=== PATIENT | male | born 1965 | race Hispanic/Latino ===

== ENCOUNTER 2017-07-17 11:10 | Observation (INO) | payer OTHER ==
[~2017-07-17] VITALS: Ht 177.8 cm; Wt 97.7 kg
[2017-07-17 11:42] LABS: CREATININE 1.6 mg/dL (0.5-1.5); POTASSIUM 4.8 mmol/L (3.5-5.1)
[2017-07-17 11:43] LABS: BASOPHILS % (AUTO) 1.5 % (0.0-5.0); EOSINOPHILS % (AUTO) 3.2 % (0.0-8.0); LYMPHOCYTES % (AUTO) 20.5 % (21.0-51.0); MEAN CORPUSCULAR HEMOGLOBIN 30.5 pg (27.0-33.0); MEAN CORPUSCULAR HGB CONC 34.8 g/dL (32.0-36.0); MEAN CORPUSCULAR VOLUME 87.5 fL (79-99); MONOCYTES % (AUTO) 9.5 % (3.0-13.0); NEUTROPHILS % (AUTO) 65.3 % (40.0-77.0); PLATELET COUNT (AUTO) 221 K/uL (130-400); RED BLOOD CELL COUNT(AUTO) 4.23 MIL/uL (4.50-6.20); RED CELL DISTRIBUTION WIDTH 14.7 % (11.0-15.5); WHITE BLOOD COUNT (AUTO) 9.6 K/uL (4.8-10.8)
[2017-07-17 11:47] LABS: INR 0.96 (0.85-1.15); PARTIAL THROMBOPLASTIN TIME 25.9 SEC (26.3-35.5); PROTHROMBIN TIME 10.1 SEC (9.6-11.6)
[2017-07-17 11:56] LABS: ALBUMIN 3.7 g/dL (3.5-5.0); BILIRUBIN,TOTAL 0.9 mg/dL (0.2-1.0); CREATINE KINASE MB 1.2 ng/mL (0.5-3.6)
[2017-07-17] MEDS ORDERED: ASPIRIN 81MG TAB.CHEW ONE (15:33)
[2017-07-17] MEDS ORDERED: ENOXAPARIN SODIUM 100 MG/1 ML SQ ONE (17:01)
[2017-07-17] MEDS ORDERED: CLOPIDOGREL BISULFATE 75 MG TAB ONE (17:02)
[2017-07-17 19:59] LABS: CREATINE KINASE MB 0.9 ng/mL (0.5-3.6)
[2017-07-17 21:35] VITALS: BP 145/88
[2017-07-17 23:57] VITALS: BP 130/83
[2017-07-18] MEDS ORDERED: ESCI10TA54 PO (00:17)
[2017-07-18] MEDS ORDERED: AMLO5TAB2 PO (00:17)
[2017-07-18] MEDS ORDERED: NIAC250T9 PO (00:17)
[2017-07-18] MEDS ORDERED: METF10004 PO (00:17)
[2017-07-18] MEDS ORDERED: METO100T14 PO (00:17)
[2017-07-18] MEDS ORDERED: NITR0.4T SL (00:17)
[2017-07-18] MEDS ORDERED: LISI-613 PO (00:17)
[2017-07-18] MEDS ORDERED: NITROGLYCERIN 0.4 MG SL TAB SL PRN (00:30)
[2017-07-18 02:07] LABS: HEMATOCRIT 36.1 % (42-54); MEAN CORPUSCULAR HEMOGLOBIN 30.5 pg (27.0-33.0); MEAN CORPUSCULAR HGB CONC 34.7 g/dL (32.0-36.0); MEAN CORPUSCULAR VOLUME 87.7 fL (79-99); NUCLEATED RED BLOOD CELLS 0.1 % (0.0-0.19); PLATELET COUNT (AUTO) 200 K/uL (130-400); RED BLOOD CELL COUNT(AUTO) 4.11 MIL/uL (4.50-6.20); WHITE BLOOD COUNT (AUTO) 10.8 K/uL (4.8-10.8)
[2017-07-18 02:38] LABS: CARBON DIOXIDE 27 mmol/L (21-32); CHLORIDE 103 mmol/L (101-111); CREATINE KINASE MB 0.8 ng/mL (0.5-3.6); CREATINE KINASE, TOTAL 71 U/L (21-232); CREATININE 1.4 mg/dL (0.5-1.5); GLOMERULAR FILTR. RATE CALC 57 mL/min (>60); GLUCOSE,RANDOM 98 mg/dL (70-105); MYOGLOBIN 60 ng/mL (10-92); POTASSIUM 4.9 mmol/L (3.5-5.1); SODIUM SERUM 138 mmol/L (136-145); TROPONIN I < 0.04 ng/mL (0.00-0.06); UREA NITROGEN, BLOOD 31 mg/dL (7-18)
[2017-07-18 04:00] VITALS: BP 117/76
[2017-07-18 08:30] VITALS: BP 140/89
[2017-07-18 11:55] VITALS: BP 120/88
[2017-07-18] MEDS: NIACIN 250 MG TABLET.SA PO SCH (14:25)
[2017-07-18] MEDS: METOPROLOL TARTRATE 50 MG TAB PO SCH ×2 (14:25→20:34)
[2017-07-18] MEDS: METFORMIN HCL 500 MG TABLET PO SCH ×2 (14:25→17:33)
[2017-07-18] MEDS: CITALOPRAM 20 MG TABLET PO SCH (14:26)
[2017-07-18] MEDS: LISINOPRIL 20 MG TABLET PO SCH (14:26)
[2017-07-18] MEDS: AMLODIPINE BESYLATE 5 MG TAB PO SCH (14:26)
[2017-07-18] MEDS: CLOPIDOGREL BISULFATE 75 MG TAB PO SCH (14:26)
[2017-07-18] MEDS: ASPIRIN 81MG TAB.CHEW PO SCH (14:26)
[2017-07-18] MEDS: ENOXAPARIN SODIUM 100 MG/1 ML SQ SCH ×2 (14:28→20:35)
[2017-07-18 17:43] VITALS: BP 133/85
[2017-07-18 20:00] VITALS: BP 110/76
[2017-07-18 23:40] VITALS: BP 106/72
[2017-07-19 03:56] VITALS: BP 121/83
[2017-07-19 07:00] VITALS: BP 126/79
[2017-07-19] MEDS ORDERED: REGADENOSON 0.4 MG/5 ML PF SYG IVP SCH (10:15)
[2017-07-19] MEDS: CITALOPRAM 20 MG TABLET PO SCH (15:29)
[2017-07-19] MEDS: AMLODIPINE BESYLATE 5 MG TAB PO SCH (15:29)
[2017-07-19] MEDS: ASPIRIN 81MG TAB.CHEW PO SCH (15:29)
[2017-07-19] MEDS: CLOPIDOGREL BISULFATE 75 MG TAB PO SCH (15:29)
[2017-07-19] MEDS: LISINOPRIL 20 MG TABLET PO SCH (15:30)
[2017-07-19] MEDS: METFORMIN HCL 500 MG TABLET PO SCH ×2 (15:30→17:12)
[2017-07-19] MEDS: METOPROLOL TARTRATE 50 MG TAB PO SCH (15:30)
[2017-07-19] MEDS: ENOXAPARIN SODIUM 100 MG/1 ML SQ SCH (15:31)
[2017-07-19] MEDS: NIACIN 250 MG TABLET.SA PO SCH (15:33)
[2017-07-19 16:00] VITALS: BP 120/78
== END 2017-07-19 17:40 | disposition home or self-care (01) ==
LOC: EDH 11:10 → EDHIP 15:27 → 3DH 21:35
PROVIDERS: ADMIT Internal Medicine; ATTEND Internal Medicine
DX: I25.10 Atherosclerotic heart disease of native coronary artery without angina pectoris (principal); Z95.1 Presence of aortocoronary bypass graft; E11.9 Type 2 diabetes mellitus without complications; E78.5 Hyperlipidemia, unspecified; I10 Essential (primary) hypertension; I24.9 Acute ischemic heart disease, unspecified
CPT/HCPCS: 36415 ×2; 71045; 78452; 80048; 80053; 82550 ×3; 82553 ×3; 82948 ×7; 83874; 84484 ×3; 85025; 85027; 85610; 85730; 93005; 93017; 96372 ×2; 99285; A9500 ×2; G0378 ×50; J1650 ×4; J2785; 96374

== ENCOUNTER 2017-10-13 08:23 | Emergency (ER) | payer OTHER ==
[~2017-10-13 08:23] MED LIST: AMLO5TAB2 PO; ESCI10TA54 PO; LISI-613 PO; METF10004 PO; METO100T14 PO; NIAC250T9 PO; NITR0.4T SL
[2017-10-13] MEDS ORDERED: ONDANSETRON HCL MDV 20ML 2 MG/ML VIAL ONE (08:52)
[2017-10-13] MEDS ORDERED: SODIUM CHLORIDE 0.9% 500ML 500 ML IV ONE (08:52)
[2017-10-13] MEDS ORDERED: KETOROLAC TROMETHAMINE 30MG/ML ONE (08:52)
[2017-10-13 09:00] LABS: APPEARANCE,URINE Cloudy (CLEAR); BILIRUBIN,URINE Negative (NEGATIVE); COLOR,URINE Yellow (YELLOW); GLUCOSE, URINE (UA) Negative (NEGATIVE); KETONES,URINE Trace mg/dL (NEGATIVE); LEUKOCYTE ESTERASE ,URINE Moderate (NEGATIVE); NITRATE,URINE Negative (NEGATIVE); OCCULT BLOOD,URINE Large (NEGATIVE); PROTEIN,URINE POS 2+ (NEGATIVE)
[2017-10-13 09:02] LABS: AMPHET/METH SCREEN,URINE NEGATIVE (NEGATIVE); BARBITURATE SCREEN, URINE NEGATIVE (NEGATIVE); BENZODIAZEPINES SCREEN,URINE POSITIVE (NEGATIVE); CANNABINOID SCREEN,URINE NEGATIVE (NEGATIVE); COCAINE SCREEN,URINE NEGATIVE (NEGATIVE); OPIATE SCREEN,URINE NEGATIVE (NEGATIVE); PHENCYCLIDINE SCREEN,URINE NEGATIVE (NEGATIVE)
[2017-10-13 09:26] LABS: CREATININE 2.2 mg/dL (0.5-1.5); POTASSIUM 4.4 mmol/L (3.5-5.1)
[2017-10-13 09:30] LABS: ALBUMIN 3.6 g/dL (3.5-5.0); BILIRUBIN,DIRECT 0.1 mg/dL (0.0-0.3); BILIRUBIN,TOTAL 0.4 mg/dL (0.2-1.0); TOTAL PROTEIN, SERUM 8.2 g/dL (6.0-8.3)
[2017-10-13] MEDS ORDERED: ASPIRIN 325 MG TABLET ONE (09:40)
[2017-10-13 09:49] LABS: BACTERIA,URINE Moderate /HPF (None Seen); RBC,URINE 26-50 /HPF (0-1)
[2017-10-13 09:50] LABS: BASOPHILS % (AUTO) 0.8 % (0.0-5.0); EOSINOPHILS % (AUTO) 3.2 % (0.0-8.0); HEMATOCRIT 38.3 % (42-54); MEAN CORPUSCULAR HEMOGLOBIN 29.3 pg (27.0-33.0); MEAN CORPUSCULAR HGB CONC 33.3 g/dL (32.0-36.0); MONOCYTES % (AUTO) 8.4 % (3.0-13.0); NEUTROPHILS % (AUTO) 75.6 % (40.0-77.0); NUCLEATED RED BLOOD CELLS 0.1 % (0.0-0.19); PLATELET COUNT (AUTO) 251 K/uL (130-400); RED BLOOD CELL COUNT(AUTO) 4.35 MIL/uL (4.50-6.20); RED CELL DISTRIBUTION WIDTH 14.6 % (11.0-15.5); WHITE BLOOD COUNT (AUTO) 8.9 K/uL (4.8-10.8)
[2017-10-13] MEDS ORDERED: CEFTRIAXONE SODIUM 1 GM ONE (10:07)
[2017-10-13] MEDS ORDERED: SODIUM CHLORIDE 0.9% 100 ML IV ONE (10:09)
== END 2017-10-13 12:18 | disposition home or self-care (01) ==
LOC: EDH 08:23
DX: N20.0 Calculus of kidney (principal); N12 Tubulo-interstitial nephritis, not specified as acute or chronic; E11.9 Type 2 diabetes mellitus without complications; E78.5 Hyperlipidemia, unspecified; I10 Essential (primary) hypertension; I25.10 Atherosclerotic heart disease of native coronary artery without angina pectoris
CPT/HCPCS: 36415; 74176; 80048; 80076; 80305; 81001; 82550; 83690; 84484; 85025; 93005; 96374; 96375; 99285; J0696; J1885; J7040

== ENCOUNTER 2019-04-28 23:08 | Emergency (ER) | payer OTHER ==
[~2019-04-28 23:08] MED LIST changes: -AMLO5TAB2 PO; +AMLO5TAB9 PO; +METF-446 PO; -METF10004 PO
[2019-04-29 00:01] LABS: APPEARANCE,URINE Clear (CLEAR); BILIRUBIN,URINE Negative (NEGATIVE); COLOR,URINE Dark Yellow (YELLOW); GLUCOSE, URINE (UA) TRACE mg/dL (NEGATIVE); KETONES,URINE 15 mg/dL (NEGATIVE); LEUKOCYTE ESTERASE ,URINE Trace (NEGATIVE); NITRATE,URINE Negative (NEGATIVE); OCCULT BLOOD,URINE Moderate (NEGATIVE); PROTEIN,URINE 300 mg/dL (NEGATIVE); UROBILINOGEN,URINE >=8.0 mg/dL (0.2-1.0)
[2019-04-29 00:03] LABS: BASOPHILS % (AUTO) 0.7 % (0.0-5.0); HEMATOCRIT 36.8 % (42-54); LYMPHOCYTES % (AUTO) 11.2 % (21.0-51.0); MEAN CORPUSCULAR HEMOGLOBIN 29.2 pg (27.0-33.0); MEAN CORPUSCULAR HGB CONC 33.7 g/dL (32.0-36.0); MEAN CORPUSCULAR VOLUME 86.8 fL (79-99); MONOCYTES % (AUTO) 6.8 % (3.0-13.0); NEUTROPHILS % (AUTO) 80.8 % (40.0-77.0); PLATELET COUNT (AUTO) 97 K/uL (130-400); RED BLOOD CELL COUNT(AUTO) 4.24 MIL/uL (4.50-6.20); RED CELL DISTRIBUTION WIDTH 14.3 % (11.0-15.5); WHITE BLOOD COUNT (AUTO) 5.9 K/uL (4.8-10.8)
[2019-04-29 00:09] LABS: AMPHET/METH SCREEN,URINE NEGATIVE (NEGATIVE); BARBITURATE SCREEN, URINE NEGATIVE (NEGATIVE); BENZODIAZEPINES SCREEN,URINE POSITIVE (NEGATIVE); CANNABINOID SCREEN,URINE NEGATIVE (NEGATIVE); COCAINE SCREEN,URINE NEGATIVE (NEGATIVE); OPIATE SCREEN,URINE POSITIVE (NEGATIVE); PHENCYCLIDINE SCREEN,URINE NEGATIVE (NEGATIVE)
[2019-04-29] MEDS ORDERED: SODIUM CHLORIDE 0.9% 1000ML 1,000 ML IV ONE (00:09)
[2019-04-29] MEDS ORDERED: KETOROLAC TROMETHAMINE 30MG/ML ONE (00:10)
[2019-04-29 00:11] LABS: AMORPHOUS SEDIMENT,UR Moderate /LPF (None Seen); BACTERIA,URINE None Seen /HPF (None Seen); MUCUS,URINE Few LPF (None Seen); RBC,URINE 0-1 /HPF (0-1); SQUAMOUS EPITHELIAL CELL,UR Few /HPF (0-2); WBC,URINE 0-1 /HPF (0-1)
[2019-04-29 00:11] LABS: CREATININE 1.8 mg/dL (0.5-1.5); POTASSIUM 3.9 mmol/L (3.5-5.1)
[2019-04-29] MEDS ORDERED: DIAZEPAM 5 MG TABLET ONE (00:11)
[2019-04-29 00:15] LABS: ALBUMIN 3.4 g/dL (3.5-5.0); BILIRUBIN,TOTAL 1.2 mg/dL (0.2-1.0); TOTAL PROTEIN, SERUM 7.7 g/dL (6.0-8.3)
== END 2019-04-29 01:18 | disposition home or self-care (01) ==
LOC: EDH 23:08
DX: T14.8XXA Other injury of unspecified body region, initial encounter (principal); M54.5 Low back pain; E78.5 Hyperlipidemia, unspecified; I10 Essential (primary) hypertension; E11.9 Type 2 diabetes mellitus without complications; I25.10 Atherosclerotic heart disease of native coronary artery without angina pectoris; Z98.890 Other specified postprocedural states; V89.2XXA Person injured in unspecified motor-vehicle accident, traffic, initial encounter; Y93.89 Activity, other specified; Y92.89 Other specified places as the place of occurrence of the external cause; Y99.8 Other external cause status
CPT/HCPCS: 36415; 74176; 80053; 80305; 81001; 85025; 96374; 99285; J1885; J7030